=== PATIENT | male | born 1990 | race Caucasian/White ===

== ENCOUNTER 2022-08-07 13:20 | Emergency (ER) | payer OTHER, SELFPAY ==
--- NOTE | ~2022-08-07 | XR_ITS ---
EXAMINATION: XR chest 2V Exam Date/Time: 08/07/2022 14:28 [employer]ES OPERATIONS ASSISTANT HISTORY: cough Comparison: None available. RESULT: Lines, tubes, and devices: None. Lungs and pleura: Clear. Cardiomediastinal silhouette: Normal. Other: No acute osseous or upper abdominal finding. IMPRESSION: No acute cardiopulmonary process. Reviewed, dictated and finalized at location [facility]. [facility] OPERATIONS ASSISTANT
[2022-08-07 13:33] VITALS: BP 135/86; PULSE 86; RESP 16; TEMP 36.7; O2SAT 100
--- NOTE | 2022-08-07 14:10 | ED.URI ---
HPI - URI/Sore Throat General Chief Complaint: Upper Respiratory Infection Stated Complaint: Sore Throat, Cough Time Seen by Provider: 08/07/22 14:10 Source: patient and RN notes reviewed Mode of arrival: ambulatory Limitations: no limitations History of Present Illness HPI Narrative: 31 y/o male presents for complaint of cough worsening over the last 3 days. He endorses cough is productive of brown sputum. Reports at the onset of symptoms about 5 days ago he had sore throat, fever, and sinus congestion. He denies fatigue, fever, shortness of breath or wheezing. He is taking Tylenol and ibuprofen for symptoms. He has taken 3 negative COVID tests at home. He was seen at an outside urgent care 5 days ago and tested negative for flu and strep. MD elicited complaint: cough Related Data Home Medications Medication Instructions Recorded Confirmed fluticasone propionate 44 2 puff inhalation BID 08/07/22 08/07/22 mcg/actuation HFA aerosol inhaler (Flovent HFA) omeprazole 40 mg capsule,delayed 40 mg PO DAILY 08/07/22 08/07/22 release Allergies Allergy/AdvReac Type Severity Reaction Status Date / Time Penicillins Allergy Mild RASH Verified 08/07/22 14:28 ALL UNCOOKED VEGETABLES AND Allergy Mild RASH Uncoded 08/07/22 14:28 FRUITS Review of Systems Review of Systems: CONSTITUTIONAL: denies malaise, chills, sweats, fever EYES: Denies visual changes, redness, or discharge ENT: Reports rhinorrhea, congestion, sore throat CARDIOVASCULAR: Denies chest pain, palpitations, edema RESPIRATORY: Reports cough, post nasal drainage. Denies dyspnea GASTROINTESTINAL: Denies abdominal pain, nausea, vomiting, diarrhea SKIN: Denies rash or itching MUSCULOSKELETAL: Denies myalgia NEUROLOGIC: Denies headache Exam Narrative: GENERAL: well-appearing EYES: PERRLA, conjunctivae clear ENT: Mucous membranes moist. TMs pearly morrison with dull light reflex bilaterally; no tragal tenderness. Oropharynx erythematous without lesions or exudate, no drooling, no hoarseness, no trismus, uvula midline. No tripod positioning, muffled voice, soft palate or pharyngeal wall bulging NECK: Supple. No lymphadenopathy CHEST: Clear to auscultation, breath sounds equal. No wheezing, rhonchi, rales, or stridor. No respiratory distress, speaks in full sentences. HEART: Regular rate and rhythm. No murmur heard. SKIN: Warm, dry, no rash. NEURO: Alert and oriented x3. PSYCH: Normal mood and affect Course Course Emergency Course: Patient is aware of diagnosis, understands and agrees to treatment plan. Anticipatory guidance given. Patient agrees to follow-up as directed and is aware of reasons to seek care at the emergency department. Portions of this record may have been created with voice recognition software Level of Care: Express Care Visit Vital Signs Vital signs: Vital Signs Temperature 98.1 F 08/07/22 13:33 Pulse Rate 86 08/07/22 13:33 Respiratory Rate 16 08/07/22 13:33 Blood Pressure 135/86 08/07/22 13:33 Pulse Oximetry 100 08/07/22 13:33 Oxygen Delivery Room Air 08/07/22 13:33 Temperature 98.1 F 08/07/22 13:33 Pulse Rate 86 08/07/22 13:33 Respiratory Rate 16 08/07/22 13:33 Blood Pressure 135/86 08/07/22 13:33 Pulse Oximetry 100 08/07/22 13:33 Oxygen Delivery Room Air 08/07/22 13:33 reviewed MDM - URI/Sore Throat MDM Narrative Medical decision making narrative: Results of chest x-ray reviewed the patient. Advised supportive measures and signs/symptoms to go to the ER. Pt is appropriate for outpt treatment and f/u. Differential Diagnosis Differential diagnosis: Likely upper respiratory infection, sinusitis and viral infection Imaging Data Radiologist's impression: Patient: Crow Daniel : 1990 MR#: [id number] Age/Sex: 31 / M Acct:[id number] Loc: [facility]? ? ADM Date: 08/07/22Attending Dr: Ordering Physician: Samara Arias APRN Date of Service: 08/07/22 Procedure(
== END 2022-08-07 15:15 | disposition home or self-care (01) ==
PROVIDERS: Emergency Provider Nurse Practitioner Family
DX: J06.9 Acute upper respiratory infection, unspecified (principal)
CPT/HCPCS: 71046; 99213; G0463